=== PATIENT | male | born 1995 | race Caucasian/White ===

== ENCOUNTER 2019-12-08 15:13 | Emergency (ER) | payer SELFPAY ==
[2019-12-08] MEDS ORDERED: SILVER SULFADIAZINE 1% TOP CREAM 50 GM JAR TP ONE ×2 (15:25→15:28)
[2019-12-08] MEDS ORDERED: IBUPROFEN 600 MG TABLET (FP) PO ONE (15:29)
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
[2019-12-08 15:32] VITALS: BP 150/89; PULSE 88; TEMP 99; BMI 14.9
== END 2019-12-08 16:30 | disposition home or self-care (01) ==
LOC: FER 15:13
DX: T23.131A Burn of first degree of multiple right fingers (nail), not including thumb, initial encounter (principal)
CPT/HCPCS: 99283-25